=== PATIENT | male | born 1995 | race Caucasian/White ===

== ENCOUNTER 2022-03-18 03:24 | Emergency (ER) | payer OTHER ==
[2022-03-18 04:01] VITALS: TEMP 98.1; BMI 25.0
[2022-03-18] MEDS ORDERED: SODIUM CHLORIDE 0.9% 500 ML INFUS.BAG IV ONE (04:10)
[2022-03-18] MEDS ORDERED: ACETAMINOPHEN 325 MG TABLET (FP) PO ONE (04:22)
[2022-03-18] MEDS ORDERED: FAMOTIDINE 20 MG TABLET PO ONE (04:26)
[2022-03-18] MEDS ORDERED: MAG HYDROX/AL HYDROX/SIMETH 30 ML UNIT-DOSE CUP PO ONE (04:26)
[2022-03-18] MEDS ORDERED: FAMOTIDINE 10 MG/ML VIAL IVPB ONE (04:27)
[2022-03-18] MEDS ORDERED: ACETAMINOPHEN 325 MG TABLET (FP) ONE (04:27)
[2022-03-18] MEDS ORDERED: MAG HYDROX/AL HYDROX/SIMETH 30 ML UNIT-DOSE CUP ONE (04:27)
[2022-03-18 04:40] LABS: BASO % 0.3 % (0-2.0); EOS % 0.3 % (0-4.5); HEMATOCRIT 44.3 % (35.4-49); HEMOGLOBIN 15.1 GM/dL (11.7-16.9); LYMPH % 29.7 % (8-40); MCH 29.7 pg (25.7-33.7); MCHC 34.1 g/dl (32.0-35.9); MEAN PLT VOLUME 9.1 fl (7.5-11.1); MONO % 6.3 % (3.8-10.2); NEUT % 63.4 % (42.8-82.8); PLATELET COUNT 220 10^3/uL (134-434); RBC 5.09 M/mm3 (4.00-5.60); RDW 12.9 % (11.9-15.9); WHITE BLOOD COUNT 9.7 K/mm3 (4.0-10.0)
[2022-03-18 05:01] LABS: CALCIUM 8.9 mg/dL (8.5-10.1)
[2022-03-18 05:02] LABS: ALBUMIN 4.2 g/dl (3.4-5.0); BLOOD UREA NITROGEN 10.1 mg/dL (7-18); MAGNESIUM 1.9 mg/dL (1.8-2.4)
[2022-03-18 05:05] LABS: CREATININE 1.3 mg/dL (0.55-1.3)
[2022-03-18 05:06] LABS: BILIRUBIN,TOTAL 0.2 mg/dL (0.2-1); TOT PROT 8.4 g/dl (6.4-8.2)
[2022-03-18 05:59] VITALS: BP 134/89
[2022-03-18 06:09] VITALS: PULSE 104
== END 2022-03-18 06:11 | disposition home or self-care (01) ==
LOC: JER 03:24
DX: R07.9 Chest pain, unspecified (principal)
CPT/HCPCS: 36415; 71046-TC-FY; 80053; 83735; 84443; 84484; 85025; 85379; 93005; 93010; 99285-25

== ENCOUNTER 2023-05-30 03:40 | Emergency (ER) | payer OTHER ==
[2023-05-30 03:53] VITALS: BMI 27.0
[2023-05-30] MEDS ORDERED: SODIUM CHLORIDE 1,000 ML IV ONE (04:49)
[2023-05-30 06:04] LABS: POTASSIUM 4.1 mmol/L (3.5-5.1)
[2023-05-30 06:06] LABS: CALCIUM 8.8 mg/dL (8.5-10.1)
[2023-05-30 06:07] LABS: ALBUMIN 3.9 g/dl (3.4-5.0); BASO % 0.8 % (0-2.0); BLOOD UREA NITROGEN 11.2 mg/dL (7-18); EOS % 0.4 % (0-4.5); HEMATOCRIT 40.5 % (35.4-49); LYMPH % 30.2 % (8-40); MCH 30.6 pg (25.7-33.7); MCHC 34.5 g/dl (32.0-35.9); MEAN CELL VOLUME 88.7 fl (80-96); MEAN PLT VOLUME 10.1 fl (7.5-11.1); MONO % 7.7 % (3.8-10.2); NEUT % 60.9 % (42.8-82.8); PLATELET COUNT 179 10^3/uL (134-434); RBC 4.57 M/mm3 (4.00-5.60); RDW 12.6 % (11.9-15.9); WHITE BLOOD COUNT 8.5 K/mm3 (4.0-10.0)
[2023-05-30 06:12] LABS: BILIRUBIN,TOTAL 0.1 mg/dL (0.2-1); TOT PROT 8.3 g/dl (6.4-8.2)
[2023-05-30 06:28] VITALS: TEMP 98.3
[2023-05-30 08:20] LABS: INR 1.09 (0.83-1.09); PROTHROMBIN TIME (PATIENT) 12.6 SEC (9.7-13.0)
[2023-05-30 08:23] LABS: ACTIVATED PTT 32.6 SECONDS (25.2-36.5)
[2023-05-30] MEDS ORDERED: LACTATED RINGERS SOLUTION 1,000 ML/1,000 ML INFUS.BAG IV SCH (08:30)
[2023-05-30 10:16] VITALS: BP 127/55; PULSE 90; RESP 14
== END 2023-05-30 10:17 | disposition home or self-care (01) ==
LOC: JER 03:40
PROC: 3E0337Z Introduction of Electrolytic and Water Balance Substance into Peripheral Vein, Percutaneous Approach (ICD-10-PCS; principal; 2023-05-30)
DX: R00.2 Palpitations (principal); R07.2 Precordial pain; R06.02 Shortness of breath; R00.0 Tachycardia, unspecified; R42 Dizziness and giddiness; R53.83 Other fatigue; R53.81 Other malaise
CPT/HCPCS: 36415; 71045-TC-FY; 71275-TC; 80053; 84443; 84484; 85025; 85610; 85730; 86850; 86900; 86901; 93005; 93010; 96360; 99285-25; Q9967